=== PATIENT | female | born 1970 | race American Indian/Alaskan Native ===

== ENCOUNTER 2021-05-05 11:37 | Emergency (ER) | payer SELFPAY ==
--- NOTE | 2021-05-05 12:11 | Emergency Department Report ---
ED General Adult HPI - General Chief complaint: Recheck/Abnormal Lab/Rx Stated complaint: BLOOD TEST Time Seen by Provider: 05/05/21 11:54 Source: patient Mode of arrival: Ambulatory Limitations: No Limitations - History of Present Illness Initial comments: 50-year-old female presents to the emergency department requesting a blood test. The patient states that she has been on Coumadin for the past 5 months. She was found to have a pulmonary embolus [place] and has been on Coumadin since that time. She states that she usually gets her INR checked monthly but [place] and has not had it checked since February. She denies any chest pain, shortness of air, palpitations, hemoptysis, or lower extremity swelling. She denies any nosebleeds, hemoptysis, hematochezia, or significant bruising. She also complains of some pain in her right ear. She is unaware of any trauma to the ear. She denies any headaches, hearing loss, tinnitus, dizziness, nausea or vomiting. MD Complaint: Blood test -: Gradual, days(s) Location: head Radiation: non-radiation Severity scale (0 -10): 4 Quality: aching Consistency: constant Improves with: none Worsens with: none Associated Symptoms: denies other symptoms - Related Data Allergies Allergy/AdvReac Type Severity Reaction Status Date / Time No Known Allergies Allergy Verified 05/05/21 13:22 ED Review of Systems ROS: Stated complaint: BLOOD TEST Other details as noted in HPI Comment: All other systems reviewed and negative ENT: ear pain ED Past Medical Hx - Past Medical History Previous Medical History?: Yes Hx Hypertension: Yes Hx Deep Vein Thrombosis: Yes Hx Pulmonary Embolism: Yes Additional medical history: BLOOD CLOT - Surgical History Past Surgical History?: No ED Physical Exam - General Limitations: No Limitations General appearance: alert, in no apparent distress - Head Head exam: Present: atraumatic, normocephalic - Eye Eye exam: Present: normal appearance - ENT ENT exam: Present: mucous membranes moist, TM's normal bilaterally, normal external ear exam - Neck Neck exam: Present: normal inspection - Respiratory Respiratory exam: Present: normal lung sounds bilaterally. Absent: respiratory distress - Cardiovascular Cardiovascular Exam: Present: regular rate, normal rhythm. Absent: systolic murmur, diastolic murmur, rubs, gallop - GI/Abdominal GI/Abdominal exam: Present: soft, normal bowel sounds - Extremities Exam Extremities exam: Present: normal inspection - Back Exam Back exam: Present: normal inspection - Neurological Exam Neurological exam: Present: alert, oriented X3 - Psychiatric Psychiatric exam: Present: normal affect, normal mood - Skin Skin exam: Present: warm, dry, intact, normal color. Absent: rash ED Course Vital Signs 05/05/21 11:43 Temperature 97.5 F L Pulse Rate 78 Respiratory 20 Rate Blood Pressure 138/85 O2 Sat by Pulse 100 Oximetry ED Medical Decision Making - Medical Decision Making Her INR is 3.13, within therapeutic limits. Her ENT exam is benign. I have asked her to follow-up with her primary care provider or we will provide a primary care provider for her to follow-up with. Critical care attestation.: If time is entered above; I have spent that time in minutes in the direct care of this critically ill patient, excluding procedure time. ED Disposition Clinical Impression: Anticoagulated on Coumadin, Right ear pain Disposition: HOME / SELF CARE / HOMELESS Is pt being admited?: No Does the pt Need Aspirin: No Condition: Good Instructions: Bleeding Precautions When on Anticoagulant Therapy, Adult, Earache, Adult Time of Disposition: 13:23
[2021-05-05 13:12] LABS: INR 3.13 (0.87-1.13)
[2021-05-05 14:12] VITALS: BP 113/59
== END 2021-05-05 14:12 | disposition home or self-care (01) ==
LOC: ED 11:37
DX: H92.01 Otalgia, right ear (principal); I10 Essential (primary) hypertension; Z79.01 Long term (current) use of anticoagulants; Z13.89 Encounter for screening for other disorder; Z86.718 Personal history of other venous thrombosis and embolism
CPT/HCPCS: 36415; 85610; 99283